=== PATIENT | male | born 1950 | race Hispanic/Latino ===

== ENCOUNTER → 2018-02-13 | Day surgery (SDC) | payer OTHER ==
[2018-02-08 11:25] VITALS: BMI 32.0
[~2018-02-13] MED LIST: Iodixanol 320 MG/ML 100 ML BOTTLE IV ONE; Iodixanol 320 MG/ML 200 ML BOTTLE IV ONE; Midazolam 2 MG/2 ML VIAL ONE; Sodium Chloride 0.9% 1,000 ML IV SCH
--- NOTE | 2018-02-14 12:28 | VAS ---
DATE: 02/13/2018 INDICATIONS: Mr. Sherley Molina is a 67-year-old male self referred for evaluation of symptoms of claudication. The patient was initially seen by a cardiology group in [facility], who underwent a CTA showing iliac disease for which he came to me for a second opinion. The patient agreed for undergoing therapy with angiogram and intervention, and was brought to the lab for further evaluation and treatment. PROCEDURE PERFORMED: 1. Distal abdominal aortogram with bilateral iliac runoff. 2. Selective bilateral iliofemoral angiogram with runoff, [employer] stenting of left common iliac and external iliac artery with use of 7 x 39 balloon expandable Viabahn stent, post-dilatation a 9 mm balloon, lesion reduction from down to 0%, decrease in translesional gradient from 30 mm down to less than 0 mm, a 7-[place] right femoral arterial access, and Mynx closure device for hemostasis. TECHNIQUES OF PROCEDURE: After obtaining informed consent, the patient was brought to the cardiac cath suite in post-absorptive, nonsedating state. The patient was prepped and draped in the usual sterile fashion, 2% lidocaine was used for infiltration of anesthesia. Using modified Seldinger technique, a 6-[place] sheath was introduced into the left femoral artery. A right iliofemoral angiogram with runoff was performed and digital subtraction angiography views below the knee and right foot profile was obtained. Subsequently, over a soft Glidewire, a modified hook catheter was advanced into the abdominal aorta. Abdominal aortogram with bilateral iliac runoff was performed. Subsequently, the hook was advanced across the aortoiliac bifurcation to the left common femoral artery. Digital subtraction angiographic views of the left SFA, left popliteal, left below the knee, and the left foot profile was obtained. Angiographic findings of the right lower extremity, right common iliac patent, external iliac patent with mild disease, profunda femoris patent, common femoral patent, SFA has proximal calcified mild lesion, SFA runs in the Julio's canal has mild lesions, popliteal patent, two vessel runoff below the knee. Anterior tibial artery 100% occluded with of the dorsalis pedis. Peroneal is a predominant vessel feeding the posterior tibial facing the [employer]INK[employer] DESIGNER and the deep plantar arch. Left lower extremity; left common iliac patent, has a hazy 70-80% stenosis at the bifurcation of the internal iliac and the external iliac. Internal iliac is 100% occluded, common femoral patent, profunda femoris, SFA patent with mild disease, popliteal patent, two vessel runoff below the knee, anterior tibial artery 100% occluded, peroneal patent with deep plantar arch and as the collaterals feed the superficial plantar arch, dorsalis pedis reconstitutes via the collateral. TECHNIQUES OF INTERVENTION: After reviewing the above angiographic findings over a Glidewire, the 6-[place] sheath was exchanged with 7-[place] Citizen 45 cm Destination Dorset sheath, which was placed across the lesion. Pullback gradient was again reconfirmed, which showed a translesional gradient of about 30 mmHg. At this point, a balloon expandable Viabahn 7 x 39 mm was deployed successfully and was post dilated with a 9 mm balloon. Final angiogram then showed lesion reduction down to 0% and no gradient across the lesion. IMPRESSION: Successful percutaneous transluminal angioplasty stenting of left common iliac, external iliac 80% stenosis with deployment of balloon expandable Viabahn covered stent. RECOMMENDATION: The patient is to be continued on dual antiplatelet therapy, continue cilostazol, guideline-directed therapy for peripheral vascular disease. The patient can be discharged to home in 6 hours. Follow up with me in two weeks time. Oz Eaton MD
== END | disposition home or self-care (01) ==
LOC: C.CATHLAB 09:55
PROVIDERS: ATTEND Internal Medicine Interventional Cardiology
DX: I70.212 Atherosclerosis of native arteries of extremities with intermittent claudication, left leg (principal)
CPT/HCPCS: 36246; 37220; J1644; J2250; J3010; J7030; Q9966; Q9967